=== PATIENT | male | born 2000 | race Caucasian/White ===

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

== ENCOUNTER 2022-11-05 14:26 | Emergency (ER) | payer OTHER ==
[~2022-11-05] VITALS: Ht 172.7 cm; Wt 68.0 kg
[2022-11-05 14:40] VITALS: BP 155/104
== END 2022-11-05 16:05 | disposition home or self-care (01) ==
LOC: ER 14:26
DX: S60.011A Contusion of right thumb without damage to nail, initial encounter (principal); F17.210 Nicotine dependence, cigarettes, uncomplicated; W23.1XXA Caught, crushed, jammed, or pinched between stationary objects, initial encounter
CPT/HCPCS: 73140; 99283-25